=== PATIENT | female | born 2000 | race Hispanic/Latino ===

== ENCOUNTER 2018-06-23 11:06 | Inpatient (IN) | payer OTHER ==
[2018-06-23 11:50] VITALS: BMI 27.6
[2018-06-23] MEDS: Lactated Ringer's 1,000 ML IV SCH ×2 (12:00→12:54)
[2018-06-23] MEDS ORDERED: HYDROcodone/Acetaminophen 5/325 mg Tablet PO PRN ×3 (12:11→18:00)
[2018-06-23] MEDS ORDERED: Lidocaine 1% (PF) 30 ML VIAL SC PRN (12:11)
[2018-06-23] MEDS ORDERED: Misoprostol 200 MCG TAB PR PRN (12:11)
[2018-06-23] MEDS ORDERED: Diphenoxylate HCl/Atropine Tablet PO PRN (12:11)
[2018-06-23] MEDS ORDERED: Ondansetron PF 4 MG/2 ML Vial IVP PRN ×2 (12:11→18:00)
[2018-06-23] MEDS ORDERED: Methylergonovine 0.2 MG/ML VIAL IM PRN (12:11)
[2018-06-23] MEDS ORDERED: Ibuprofen 800 MG TAB PO PRN (12:11)
[2018-06-23] MEDS ORDERED: NS / Oxytocin 40 units/1000ml 1,000 ML IV PRN (12:11)
[2018-06-23] MEDS ORDERED: Carboprost 250 MCG/ML AMP IM PRN (12:11)
[2018-06-23] MEDS ORDERED: NS w/ Oxytocin 10 units 500 ML IV SCH ×2 (12:15)
[2018-06-23] MEDS ORDERED: NS / Oxytocin 40 units/1000ml 1,000 ML ONE (12:29)
[2018-06-23] MEDS ORDERED: Lidocaine 1% (PF) 30 ML VIAL ONE (12:29)
[2018-06-23 12:50] LABS: Hemoglobin 12.6 g/dL (12.0-16.0); Mean Corpuscular HGB CONC 33.6 g/dL (32.0-36.0); Mean Corpuscular Volume 89.2 fL (78.0-98.0); Mean Platelet Volume 9.9 fL (7.4-10.4); Platelet Count 130 thou/uL (130-400); RBC Distribution Width 12.6 % (11.5-14.5); Red Blood Cell (RBC) Count 4.19 mill/uL (4.00-5.20); White Blood Cell (WBC) Count 8.7 thou/uL (4.8-10.8)
[2018-06-23] MEDS: Butorphanol Tartrate 1 MG/ML VIAL SLOW IVP PRN ×2 (12:51→14:19)
[2018-06-23 13:25] LABS: Syphilis Antibody Nonreactive (Nonreactive); Syphilis Antibody Index 0.03 S/CO (<1.00 Non-Reactive)
[2018-06-23 13:26] LABS: HBSAg Index 0.18 S/CO (0-0.99); Hep B Surf Ag Non-Reactive S/CO (NonReactive)
[2018-06-23] MEDS ORDERED: Bisacodyl 10 MG SUPP PR PRN (18:00)
[2018-06-23] MEDS ORDERED: diphenhydrAMINE 25 MG CAP PO PRN (18:00)
[2018-06-23] MEDS ORDERED: Milk Of Magnesia 30 ML UDCUP PO PRN (18:00)
[2018-06-23] MEDS ORDERED: Benzocaine/Menthol 20-0.5% 60 ML CAN TOP PRN (18:00)
[2018-06-23] MEDS ORDERED: Lanolin Ointment 7 GM TUBE TOP PRN (18:00)
[2018-06-23] MEDS ORDERED: NS / Oxytocin 40 units/1000ml 1,000 ML IV SCH (18:00)
[2018-06-23] MEDS ORDERED: Preparation H Ointment 28 GM TUBE PR PRN (18:00)
[2018-06-23] MEDS: Docusate Calcium (SURFAK) 240 MG CAP PO SCH (21:35)
[2018-06-23] MEDS: Ibuprofen 800 MG TAB PO SCH (21:35)
[2018-06-24] MEDS: Ibuprofen 800 MG TAB PO SCH ×3 (05:16→21:35)
[2018-06-24 07:45] LABS: Hemoglobin 10.8 g/dL (12.0-16.0); Mean Corpuscular HGB CONC 33.7 g/dL (32.0-36.0); Mean Corpuscular Hemoglobin 30.1 pg (25.0-35.0); Mean Corpuscular Volume 89.1 fL (78.0-98.0); Mean Platelet Volume 10.2 fL (7.4-10.4); Platelet Count 114 thou/uL (130-400); RBC Distribution Width 12.4 % (11.5-14.5); White Blood Cell (WBC) Count 10.3 thou/uL (4.8-10.8)
[2018-06-24] MEDS: Docusate Calcium (SURFAK) 240 MG CAP PO SCH ×2 (09:04→21:35)
[2018-06-24] MEDS: Prenatal Vitamin 1 TAB PO SCH (09:04)
[2018-06-24] MEDS: Ferrous Sulfate 325 MG TAB PO SCH ×2 (09:05→17:11)
[2018-06-25] MEDS: Ibuprofen 800 MG TAB PO SCH (05:57)
[2018-06-25] MEDS: Ferrous Sulfate 325 MG TAB PO SCH (07:40)
[2018-06-25 08:48] VITALS: BP 124/68; TEMP 98.3
[2018-06-25] MEDS: Docusate Calcium (SURFAK) 240 MG CAP PO SCH (09:09)
[2018-06-25] MEDS: Prenatal Vitamin 1 TAB PO SCH (09:09)
== END 2018-06-25 12:32 | disposition home or self-care (01) | DRG 807 ==
LOC: L&D/OP 11:06 → L&D 11:37 → 3SW 17:28
PROVIDERS: ADMIT Family Medicine; ATTEND Family Medicine
PROC: 10E0XZZ Delivery of Products of Conception, External Approach (ICD-10-PCS; principal; 2018-06-23)
PROC: 10907ZC Drainage of Amniotic Fluid, Therapeutic from Products of Conception, Via Natural or Artificial Opening (ICD-10-PCS; 2018-06-23)
PROC: 0HQ9XZZ Repair Perineum Skin, External Approach (ICD-10-PCS; 2018-06-23)
PROC: 0UQMXZZ Repair Vulva, External Approach (ICD-10-PCS; 2018-06-23)
DX: O70.0 First degree perineal laceration during delivery (principal); Z37.0 Single live birth; Z3A.39 39 weeks gestation of pregnancy
CPT/HCPCS: 36415; 85027; 86780; 86850; 86900; 86901; 87340; J0595; J2001

== ENCOUNTER 2018-08-19 09:53 | Emergency (ER) | payer OTHER ==
[2018-08-19] MEDS ORDERED: diphenhydrAMINE 25 MG CAP ONE (12:15)
== END 2018-08-19 13:25 | disposition home or self-care (01) ==
LOC: ERS 09:53
DX: K13.0 Diseases of lips (principal); T63.441D Toxic effect of venom of bees, accidental (unintentional), subsequent encounter
CPT/HCPCS: 99283; Q0163